=== PATIENT | male | born 1995 | race Caucasian/White ===

== ENCOUNTER 2020-07-08 01:03 | Emergency (ER) | payer MEDICAID ==
[~2020-07-08] VITALS: Ht 170.2 cm; Wt 67.1 kg
[2020-07-08 01:06] VITALS: BP 116/76
--- NOTE | 2020-07-08 01:17 | NUR ---
TO ED 02, AMBULATORY.
--- NOTE | 2020-07-08 01:18 | NUR ---
COVERING PRIMARY RN FOR LUNCH RELIEF----- 25 Y/O M PRESENTS TO ED WITH C/O LT GROIN PAIN X A FEW HOURS. +N/V. PT GUARDING LT GROIN AREA. PT RATES PAIN 10/10, ACHING. SMALL BULGE NOTED TO LT GROIN AREA. WILL CONTINUE TO MONITOR.
--- NOTE | 2020-07-08 01:21 | NUR ---
DR LANIER AT BEDSIDE FOR MSE.
[2020-07-08] MEDS ORDERED: MORPHINE SULFATE 4 MG/ML SYR IVP ONE (01:40)
[2020-07-08] MEDS ORDERED: ONDANSETRON 4 MG/2 ML VIAL IVP ONE ×2 (01:40→03:25)
--- NOTE | 2020-07-08 01:50 | NUR ---
KALINA JAQUEZ TO CT VIA W/C
--- NOTE | 2020-07-08 01:58 | NUR ---
RETURN FROM CT.
--- NOTE | 2020-07-08 03:35 | NUR ---
PT C/O NAUSEA. ZOFRAN IVP ADM.
[2020-07-08 04:02] VITALS: BP 116/78
--- NOTE | 2020-07-08 04:02 | NUR ---
Patient discharged with v/s stable. Written and verbal after care instructions given and explained. Patient alert, oriented and verbalized understanding of instructions. Ambulatory with steady gait. All questions addressed prior to discharge. ID band removed. IV Discontinued. Patient advised to follow up with PMD. Rx of ZOFRAN AND COLACE given. Patient educated on indication of medication including possible reaction and side effects. Opportunity to ask questions provided and answered.
== END 2020-07-08 04:02 | disposition home or self-care (01) ==
LOC: MED 01:03
DX: K40.90 Unilateral inguinal hernia, without obstruction or gangrene, not specified as recurrent (principal); R11.2 Nausea with vomiting, unspecified
CPT/HCPCS: 74176; 96374; 96375; 96376; 99284; J2270; J2405

== ENCOUNTER 2020-07-19 14:25 | Emergency (ER) | payer MEDICAID ==
[~2020-07-19] VITALS: Ht 170.2 cm; Wt 66.2 kg
[2020-07-19 14:29] VITALS: BP 130/78
--- NOTE | 2020-07-19 14:35 | NUR ---
ANA [phone] WILL HAVE PT LAY DOWN IN CAR DUE TO PAIN INSTEAD OF WAITING IN LOBBY. NO BEDS AVAILABLE NOW.
--- NOTE | 2020-07-19 15:43 | NUR ---
DR LANIER AT BEDSIDE SEEING PT WITH ASHER BRUCE
[2020-07-19] MEDS ORDERED: ONDANSETRON 4 MG/2 ML VIAL IVP ONE (15:45)
[2020-07-19] MEDS ORDERED: MORPHINE SULFATE 4 MG/ML SYR IVP ONE (15:45)
--- NOTE | 2020-07-19 15:45 | NUR ---
PT C/O LEFT GROIN AND TESTICLE PAIN X 2 WEEKS. WAS SEEN HERE FOR INGUINAL HERNIA 2 WEEKS AGO AND DISCHARGED WITH PAIN MEDICATIONS. STATES PAIN MEDICATIONS HELPED BUT THAT HE RAN OUT. SITE APPEARS SWOLLEN, PAINFUL TO TOUCH. 10 PAIN. PT DENIES N/V/D. PT PRIMARILY GUAMANIAN SPEAKING, DR CANNON NOTES REVIEWED
--- NOTE | 2020-07-19 16:02 | NUR ---
IV INSERTED, PT STATES HE HAS AN ALLERGY TO MORPHINE, NON-ADMINISTERED
[2020-07-19] MEDS ORDERED: KETOROLAC 15 MG/ML VIAL IVP ONE (16:05)
--- NOTE | 2020-07-19 16:17 | NUR ---
PT AT CT SCAN
--- NOTE | 2020-07-19 16:42 | NUR ---
PT STATES RELIEF FROM PAIN, 3/10 IN SEVERITY
[2020-07-19 17:33] VITALS: BP 102/58
--- NOTE | 2020-07-19 17:33 | NUR ---
Patient discharged with v/s stable. Written and verbal after care instructions given and explained. Patient alert, oriented and verbalized understanding of instructions. Ambulatory with steady gait. All questions addressed prior to discharge. ID band removed. Patient advised to follow up with PMD. Rx of MOTRIN, TYLENOL, AND NORCO given. Patient educated on indication of medication including possible reaction and side effects. Opportunity to ask questions provided and answered. PT INSTRUCTED TO NOT DRIVE AFTER TAKING NORCO PT VERBALIZED HE UNDERSTOOD ARABIC/TAJIK DISCHARGE INSTRUCTIONS ASHER BRUCE TRNASLATED DISCAHRGE WITH DR LANIER
== END 2020-07-19 17:33 | disposition home or self-care (01) ==
LOC: MED 14:25
DX: K40.90 Unilateral inguinal hernia, without obstruction or gangrene, not specified as recurrent (principal)
CPT/HCPCS: 74176; 96374; 99284; J1885; J2270; J2405